=== PATIENT | male | born 1950 | race Caucasian/White ===

== ENCOUNTER 2018-03-19 05:48 | Emergency (ER) | payer OTHER, BC ==
[2018-03-19 06:24] VITALS: BMI 23.6
--- NOTE | 2018-03-19 08:02 | PDOC ---
History of Present Illness - General Chief Complaint: Urinary Problem Stated Complaint: URINARY PROBLEM Time Seen by Provider: 03/19/18 07:51 History Source: Patient Exam Limitations: No Limitations - History of Present Illness Travel History: No Initial Comments: 03/19/18 07:58 68-year-old male with history of BPH followed by urologist in [place] presents to the ED with complaints of difficulty urinating since 1 AM. Patient states has attempted to urinate but only drips yellow urine. Patient denies back pain, hematuria, fever or chills. Patient states is currently on no medication for his prostate and denies surgical correction for Infante placement in the past. Timing/Duration: reports: constant, getting worse Quality: reports: moderate, fullness Abdominal Pain Onset Location: reports: suprapubic Pain Radiation: reports: no radiation Activities at Onset: reports: none Aggravating Factors: improves with: None Alleviating Factors: improves with: None Past History - Travel Traveled outside of the country in the last 30 days: No - Past Medical History Allergies/Adverse Reactions: Allergies Allergy/AdvReac Type Severity Reaction Status Date / Time bacitracin Allergy Rash Verified 03/19/18 06:24 Home Medications: Ambulatory Orders NK [No Known Home Medication] 11/22/13 Cancer: Yes (BASIL CELL HEAD, NOSE, NECK) COPD: No - Immunization History Immunization Up to Date: Yes - Suicide/Smoking/Psychosocial Hx Smoking History: Never smoked Have you smoked in the past 12 months: No Information on smoking cessation initiated: No Hx Alcohol Use: No Drug/Substance Use Hx: No Substance Use Type: None Patient Lives Alone: No Lives with/in: spouse/SO Review of Systems - Review of Systems Able to Perform ROS?: Yes Constitutional: No: Symptoms Reported Respiratory: No: Symptoms reported ABD/GI: Yes: Other : Yes: Dysuria, Urgency. No: Testicular Pain Musculoskeletal: No: Symptoms Reported Integumentary: No: Symptoms Reported Neurological: No: Symptoms reported *Physical Exam - Vital Signs Last Vital Signs Temp Pulse Resp BP Pulse Ox 97.8 F 86 16 132/78 98 03/19/18 06:21 03/19/18 06:21 03/19/18 06:21 03/19/18 06:21 03/19/18 06:21 - Physical Exam General Appearance: Yes: Nourished, Appropriately Dressed. No: Apparent Distress Gastrointestinal/Abdominal: positive: Soft, Distended (over bladder), Tenderness (mid suprapubic) Male Genitalia: positive: normal genitalia. negative: discharge, testicular tenderness Extremity: positive: Normal Capillary Refill Integumentary: positive: Normal Color, Warm, Moist Neurologic: positive: Normal Mood/Affect, Motor Strength 5/5 (ambulatory) Moderate Sedation - Procedure Monitoring Vital Signs: Procedure Monitoring Vital Signs Temperature 97.8 F 03/19/18 06:21 Pulse Rate 86 03/19/18 06:21 Respiratory Rate 16 03/19/18 06:21 Blood Pressure 132/78 03/19/18 06:21 O2 Sat by Pulse Oximetry (%) 98 03/19/18 06:21 Medical Decision Making - Medical Decision Making 03/19/18 08:01 Chief complaint: Dysuria and urgency since 1 AM patient with history of BPH Exam: Suprapubic tenderness and bladder distention Plan: Infante catheter #16 placed without difficulty. Urinalysis and urine culture ordered. 03/19/18 09:02 Laboratory Tests 03/19/18 08:07 Urine Blood 2+ H Urine Nitrite Negative Urine Bilirubin Negative Ur Leukocyte Esterase Negative Urine WBC (Auto) 1 Urine RBC (Auto) 1 Patient will be switched to a leg bag and discharged home to follow-up with his urologist *DC/Admit/Observation/Transfer Diagnosis at time of Disposition: Urinary retention due to benign prostatic hyperplasia - Discharge Dispostion Disposition: HOME Condition at time of disposition: Improved - Referrals Referrals: Rusty Grove MD [Primary Care Provider] - - Patient Instructions Printed Discharge Instructions: How to Care for Your Infante Catheter -- Male, DI for Urinary Retention in Men Additional Instructions: Please empty urinary bag as needed. Please follow up with urologist for catheter removal - Post Discharge Activity
[2018-03-19 08:19] LABS: URINE APPEARANCE CLEAR; URINE BILIRUBIN NEGATIVE (<2.0 mg/dL); URINE COLOR STRAW; URINE GLUCOSE (UA) NEGATIVE (NEGATIVE); URINE KETONE NEGATIVE (NEGATIVE); URINE LEUK ESTERASE NEGATIVE (NEGATIVE); URINE NITRITE NEGATIVE (NEGATIVE); URINE PROTEIN NEGATIVE (NEGATIVE); URINE UROBILINOGEN NEGATIVE mg/dL (0.2-1.0)
[2018-03-19 08:49] LABS: URINE BACTERIA RARE /hpf (NONE SEEN)
[2018-03-19 09:40] VITALS: BP 128/80; PULSE 78; TEMP 98.5
== END 2018-03-19 09:30 | disposition home or self-care (01) ==
LOC: JER 05:48
PROC: 0T9B70Z Drainage of Bladder with Drainage Device, Via Natural or Artificial Opening (ICD-10-PCS; principal; 2018-03-19)
DX: N40.1 Benign prostatic hyperplasia with lower urinary tract symptoms (principal)
CPT/HCPCS: 81003; 81015; 87086; 99282-25

== ENCOUNTER 2018-03-26 22:20 | Inpatient (IN) | payer OTHER, BC ==
[2018-03-26 22:27] VITALS: BMI 24.7
--- NOTE | 2018-03-27 00:36 | PDOC ---
History of Present Illness - General Chief Complaint: Urinary Problem Stated Complaint: Urinary Problem Time Seen by Provider: 03/27/18 00:33 - History of Present Illness Initial Comments: The patient is a 68M w/ a PMH of BPH s/p recent mosqueda removal (03/24/2018) which was placed for retention. Since that time the patient reports that he has been experiencing frequency, difficulty initiating urination, and small volume voids. He reports that today he began to feel pain with initiation of urination and dysuria. He endorses feeling of suprapubic fullness w/o radiation. He states that he contacted his Urologist, Dr. Garcia, in [place] who told him to come to the ED tonight to have a mosqueda placed and he would see the pt tomorrow in the office. Of note, he reports that he was recently started on Flomax by said Urologist. Endorses recent chills, dysuria, mild suprapubic 'fullness' Denies fevers, LI, vision changes, chest pain, SOB, N/V/C/D, or changes in sensation PCP: Dr. Grove 03/27/18 00:44 Past History - Past Medical History Allergies/Adverse Reactions: Allergies Allergy/AdvReac Type Severity Reaction Status Date / Time bacitracin Allergy Rash Verified 03/26/18 22:27 Home Medications: Ambulatory Orders Tamsulosin HCl [Flomax] 0.4 mg PO DAILY 03/27/18 Cancer: Yes (BASIL CELL HEAD, NOSE, NECK) COPD: No - Immunization History Immunization Up to Date: Yes - Suicide/Smoking/Psychosocial Hx Smoking History: Never smoked Have you smoked in the past 12 months: No Hx Alcohol Use: Yes (OCC WINE) Drug/Substance Use Hx: No Substance Use Type: None Review of Systems - Review of Systems Able to Perform ROS?: Yes Comments:: GENERAL/CONSTITUTIONAL: No fever. No weakness HEAD, EYES, EARS, NOSE AND THROAT: No change in vision. No ear pain or discharge. No sore throat CARDIOVASCULAR: No chest pain or shortness of breath RESPIRATORY: Denies cough, hemoptysis GASTROINTESTINAL: No nausea, vomiting, diarrhea or constipation GENITOURINARY: per HPI MUSCULOSKELETAL: No joint or muscle swelling or pain. No neck or back pain SKIN: No rash NEUROLOGIC: No headache, vertigo, loss of consciousness, or change in strength/ sensation ENDOCRINE: No increased thirst. No abnormal weight change HEMATOLOGIC/LYMPHATIC: No anemia, easy bleeding, or history of blood clots ALLERGIC/IMMUNOLOGIC: No hives or skin allergy 03/27/18 00:35 Is the patient limited Mexican proficient: No *Physical Exam - Vital Signs Last Vital Signs Temp Pulse Resp BP Pulse Ox 99.2 F 120 H 18 133/60 96 03/26/18 22:24 03/26/18 22:24 03/26/18 22:24 03/26/18 22:24 03/26/18 22:24 - Physical Exam Comments: GENERAL: Awake, alert, and fully oriented, in no acute distress HEAD: No signs of trauma, normocephalic, atraumatic EYES: PERRLA, EOMI, sclera anicteric, conjunctiva clear ENT: Hearing grossly normal, nares patent, oropharynx clear without exudates. Moist mucosa LUNGS: No distress, speaks full sentences, clear to auscultation bilaterally HEART: Regular rate and rhythm, normal S1 and S2, no murmurs appreciated, peripheral pulses normal and equal bilaterally ABDOMEN: Soft, mild suprapubic TTP w/ bladder distention, normoactive bowel sounds. No guarding, no rebound EXTREMITIES : Normal inspection, Normal range of motion, no edema. No clubbing or cyanosis NEUROLOGICAL: Cranial nerves II through XII grossly intact. Normal speech, no focal sensorimotor deficits SKIN: Warm, Dry 03/27/18 00:35 Moderate Sedation - Procedure Monitoring Vital Signs: Procedure Monitoring Vital Signs Temperature 99.2 F 03/26/18 22:24 Pulse Rate 120 H 03/26/18 22:24 Respiratory Rate 18 03/26/18 22:24 Blood Pressure 133/60 03/26/18 22:24 O2 Sat by Pulse Oximetry (%) 96 03/26/18 22:24 ED Treatment Course - LABORATORY CBC & Chemistry Diagram: 03/27/18 01:00 03/27/18 01:00 Medical Decision Making - Medical Decision Making The pt is a 68M w/ a history of BPH s/p recent mosqueda removal on 03/24/2018 presenting for evaluation of urinary retention ED Course CMP, CBC, UA, Ucx Mosqueda placement 03/27/18 00:35 Leukocytosis to 15 Mosqueda placed Likely complicated UTI, will give Rocephin 1g IV Plan for admission IV abx and Urology evaluation 03/27/18 02:37 Patient febrile to 100.4 -Tylenol 975mg PO once Dispo: admit for complicated UTI and IV abx 03/27/18 05:52 *DC/Admit/Observation/Transfer Diagnosis at time of Disposition: Complicated UTI (urinary tract infection), Urinary retention due to benign prostatic hyperplasia - Discharge Dispostion Condition at time of disposition: Good Decision to Admit order: Yes - Referrals - Patient Instructions - Post Discharge Activity
--- NOTE | 2018-03-27 00:36 | PDOC ---
Attending Attestation - HPI HPI: This patient is a 68 year old male with PMHx of BPH , who was sent by his urologist. Patient complaints of dysuria as well as difficulty beginning urination. He called his urologist today who advised him to come to the ER for a mosqueda placement and he will see the patient in his office tomorrow. 03/27/18 01:02 - Physicial Exam PE: GENERAL: Awake, alert, and fully oriented, in no acute distress HEAD: No signs of trauma EYES: PERRLA, EOMI, sclera anicteric, conjunctiva clear ENT: Auricles normal inspection, hearing grossly normal, nares patent, oropharynx clear without exudates. Moist mucosa NECK: Normal ROM, supple, no lymphadenopathy, JVD, or masses LUNGS: Breath sounds equal, clear to auscultation bilaterally. No wheezes, and no crackles HEART: Regular rate and rhythm, normal S1 and S2, no murmurs, rubs or gallops ABDOMEN: Soft, nontender, normoactive bowel sounds. No guarding, no rebound. No masses. Bladder is palpable and distended below the umbilicus. EXTREMITIES: Normal range of motion, no edema. No clubbing or cyanosis. No cords, erythema, or tenderness NEUROLOGICAL: Cranial nerves II through XII grossly intact. Normal speech, normal gait SKIN: Warm, Dry, normal turgor, no rashes or lesions noted. <Mary Blanc - Last Filed: 03/27/18 01:14> - Resident Resident Name: Austin Tyler - ED Attending Attestation I have performed the following: I have examined & evaluated the patient, The case was reviewed & discussed with the resident, I agree w/resident's findings & plan, Exceptions are as noted - Medical Decision Making 03/27/18 00:36 I, Dr. Isabella Lou, DO, attest that this document has been prepared under my direction and personally reviewed by me in its entirety. I further attest, that it accurately reflects all work, treatment, procedures and medical decision -making performed by me. 03/27/18 01:22 a/p: 68yo male with hx of BPH with urinary freq, dysuria, hesitancy -recent catheter placed last saturday for urinary retention, removed Saturday by Dr. Radha -dysuria/freq, small urine outpt since -will check labs, mosqueda, ua/ucx -will orally hydrate -will monitor and reassess 03/27/18 02:37 wbc 15 has had chills this week dysuria most likely complicated UTI with recent mosqueda and then refoley will start iv abx 03/27/18 02:40 pt updated on labs will admit for iv abx microblog sent to [facility] covering Dr. Grove <Isabella Lou - Last Filed: 03/27/18 02:47> Heart Score/ECG Review - ECG Intrepretation Comment:: 03/27/18 02:46 sinus tach at 107, nl axis, t wave inversions iii, v3-v4, no acute st changes <Isabella Lou - Last Filed: 03/27/18 02:47> Attestations - Attestations 03/27/18 01:04 Documentation prepared by Mary Blanc, acting as medical lab technologist for Isabella Lou DO. <Mary Blanc - Last Filed: 03/27/18 01:14>
[2018-03-27 01:24] LABS: BASO % 0.4 % (0-2.0); HEMATOCRIT 40.4 % (35.4-49); HEMOGLOBIN 14.2 GM/dL (11.7-16.9); LYMPH % 7.6 % (8-40); MCH 31.3 pg (25.7-33.7); MCHC 35.1 g/dl (32.0-35.9); MEAN CELL VOLUME 89.3 fl (80-96); MEAN PLT VOLUME 8.7 fl (7.5-11.1); MONO % 11.5 % (3.8-10.2); NEUT % 80.5 % (42.8-82.8); PLATELET COUNT 184 K/MM3 (134-434); RBC 4.53 M/mm3 (4.00-5.60); RDW 13.7 % (11.9-15.9); WHITE BLOOD COUNT 15.3 K/mm3 (4.0-10.0)
[2018-03-27 01:55] LABS: ALBUMIN 3.3 g/dl (3.4-5.0); ALK PHOS 90 U/L (45-117); ANION GAP 5 MMOL/L (8-16); BILIRUBIN,TOTAL 1.2 mg/dL (0.2-1); BLOOD UREA NITROGEN 18 mg/dL (7-18); CALCIUM 8.5 mg/dL (8.5-10.1); CHLORIDE 98 mmol/L (98-107); CO2 30 mmol/L (21-32); GLUCOSE,RANDOM 101 mg/dL (74-106); POTASSIUM 3.9 mmol/L (3.5-5.1); SGOT/AST 30 U/L (15-37); SGPT/ALT 26 U/L (13-61); SODIUM 133 mmol/L (136-145); TOT PROT 6.5 g/dl (6.4-8.2)
[2018-03-27] MEDS ORDERED: CEFTRIAXONE 1,000 MG in DEXTROSE 5%-WATER - 50 ML IVPB ONE (02:36)
[2018-03-27] MEDS ORDERED: SODIUM CHLORIDE 0.9% 500 ML INFUS.BAG IV ONE (02:41)
[2018-03-27] MEDS ORDERED: CEFTRIAXONE 1 GM/50 ML BAG ONE (03:15)
[2018-03-27 03:28] LABS: URINE APPEARANCE CLEAR; URINE BILIRUBIN NEGATIVE (<2.0 mg/dL); URINE COLOR LTYELLOW; URINE GLUCOSE (UA) NEGATIVE (NEGATIVE); URINE KETONE 1+ (NEGATIVE); URINE LEUK ESTERASE TRACE (NEGATIVE); URINE NITRITE NEGATIVE (NEGATIVE); URINE PROTEIN 1+ (NEGATIVE); URINE UROBILINOGEN NEGATIVE mg/dL (0.2-1.0)
--- NOTE | 2018-03-27 03:46 | HP ---
CHIEF COMPLAINT: increased urinary urgency x 3 days PCP: Dr. Grove HISTORY OF PRESENT ILLNESS: 68 y/o M with PMH BPH who presents to the ED c/o increased urinary urgency over the past three days. 1 week ago, pt experienced decreased urinary frequency, thus he came to the ED to have a mosqueda placed and was sent home. In the interim , pt saw his urologist, Dr. Garcia who started him on flomax 0.4mg qd. This past Saturday, Dr. Garcia removed his mosqueda and initially pt was with adequate flow and frequency. However, over the last three days, he developed decreased flow, increased urgency, and painful start and stop of urination. During this time, pt also endorses subjective chills and constipation. Denies LI, chest pain or pressure, or N/V. ER course was notable for: (1) mosqueda (2) rocephin x 1 (3) IV NS Recent Travel: denies PAST MEDICAL HISTORY: BPH PAST SURGICAL HISTORY: circumcision (age 33), basal cell CA -moh's sx 1994, laser tx vein Social History: [place]- outdoor camping Smoking: denies Alcohol: denies Drugs: denies Family History: denies Allergies bacitracin Allergy (Verified 03/26/18 22:27) Rash HOME MEDICATIONS: Home Medications Medication Instructions Recorded Flomax 0.4mg qd 03/27/18 verified with patient REVIEW OF SYSTEMS CONSTITUTIONAL: +chills Absent: fever, chills, diaphoresis, generalized weakness, malaise, loss of appetite, weight change HEENT: Absent: rhinorrhea, nasal congestion, throat pain, throat swelling, difficulty swallowing, mouth swelling, ear pain, eye pain, visual changes CARDIOVASCULAR: Absent: chest pain, syncope, palpitations, irregular heart rate, lightheadedness , peripheral edema RESPIRATORY: Absent: cough, shortness of breath, dyspnea with exertion, orthopnea, wheezing, stridor, hemoptysis GASTROINTESTINAL: Absent: abdominal pain, abdominal distension, nausea, vomiting, diarrhea, constipation, melena, hematochezia GENITOURINARY: +dysuria, urgency Absent: dysuria, frequency, urgency, hesitancy, hematuria, flank pain, genital pain MUSCULOSKELETAL: Absent: myalgia, arthralgia, joint swelling, back pain, neck pain SKIN: Absent: rash, itching, pallor HEMATOLOGIC/IMMUNOLOGIC: Absent: easy bleeding, easy bruising, lymphadenopathy, frequent infections ENDOCRINE: Absent: unexplained weight gain, unexplained weight loss, heat intolerance, cold intolerance NEUROLOGIC: Absent: headache, focal weakness or paresthesias, dizziness, unsteady gait, seizure, mental status changes, bladder or bowel incontinence PSYCHIATRIC: Absent: anxiety, depression, suicidal or homicidal ideation, hallucinations. PHYSICAL EXAMINATION Vital Signs - 24 hr 03/26/18 22:24 Temperature 99.2 F Pulse Rate 120 H Respiratory 18 Rate Blood Pressure 133/60 O2 Sat by Pulse 96 Oximetry (%) GENERAL: resting comfortably in bed. in NAD HEAD: Normal with no signs of trauma. EYES: Pupils equal, round and reactive to light, extraocular movements intact, sclera anicteric, conjunctiva clear. EARS, NOSE, THROAT: Ears normal, nares patent, oropharynx clear without exudates. Moist mucous membranes. NECK: Normal range of motion, supple LUNGS: Breath sounds equal, clear to auscultation bilaterally. No wheezes, and no crackles. No accessory muscle use. HEART: +tachycardic rate and rhythm, normal S1 and S2 without murmur, rub or gallop. ABDOMEN: Soft, mild suprapubic tenderness, non distended, normoactive bowel sounds, no guarding, no rebound : +mosqueda, draining LOWER EXTREMITIES: 2+ pt pulses, warm, well-perfused. no edema NEUROLOGICAL: Cranial nerves II-XII intact. Normal speech. Laboratory Results - last 24 hr 03/27/18 03/27/18 03/27/18 01:00 01:00 01:55 WBC 15.3 H RBC 4.53 Hgb 14.2 Hct 40.4 MCV 89.3 MCH 31.3 MCHC 35.1 RDW 13.7 Plt Count 184 MPV 8.7 Absolute Neuts (auto) 12.3 H Neutrophils % 80.5 D Lymphocytes % 7.6 L D Monocytes % 11.5 H Eosinophils % 0.0 D Basophils % 0.4 Nucleated RBC % 0 Sodium 133 L Potassium 3.9 Chloride 98 Carbon Dioxide 30 Anion Gap 5 L BUN 18 Creatinine 1.0 Creat Clearance w eGFR > 60 Random Glucose 101 Calcium 8.5 Total Bilirubin 1.2 H AST 30 ALT 26 Alkaline Phosphatase 90 Total Protein 6.5 Albumin 3.3 L Urine Color Ltyellow Urine Appearance Clear Urine pH 6.0 Ur Specific Brooks 1.008 L Urine Protein 1+ H Urine Glucose (UA) Negative Urine Ketones 1+ H Urine Blood 3+ H Urine Nitrite Negative Urine Bilirubin Negative Urine Urobilinogen Negative Ur Leukocyte Esterase Trace ASSESSMENT/PLAN: 68 y/o M with PMH BPH who presents to the ED c/o increased urinary urgency over the past three days. #sepsis 2/2 UTI complicated by retention, mosqueda -though without significant findings on UA, with mild suprapubic tenderness, dysuria/urgency. WBC 15k will tx -s/p mosqueda placement -c/w rocephin 1g IVPB qd -c/w flomax 0.4mg PO qd -f/u ucx -uro f/u: Dr. Guzmán -void trials when able and no longer concern for retention, bladder scan as needed #BPH -c/w flomax #constipation -likely exacerbating urinary retention -will start senna, colace #f/e/n encourage PO intake continue to follow lytes regular diet #ppx DVT: hep 5k SQ TID #dispo admit med-surg Visit type - Emergency Visit Emergency Visit: Yes ED Registration Date: 03/27/18 Care time: The patient presented to the Emergency Department on the above date and was hospitalized for further evaluation of their emergent condition. - New Patient This patient is new to me today: Yes Date on this admission: 03/27/18 - Critical Care Critical Care patient: No
[2018-03-27 03:48] LABS: EPI CELLS FEW /HPF (FEW); URINE BACTERIA RARE /hpf (NONE SEEN)
--- NOTE | 2018-03-27 04:43 | PN ---
Teaching Attending Note Name of Resident: Lorena Vital ATTENDING PHYSICIAN STATEMENT I saw and evaluated the patient. I reviewed the resident's note and discussed the case with the resident. I agree with the resident's findings and plan as documented. SUBJECTIVE: This is a 68 year old man with a history of BPH, basal cell carcinoma who comes to the ED complaining of urinary urgency for 3 days. On Mar 19, he was seen in the ED for difficulty urinating. He was thought to have urinary retention secondary to BPH and a Infante was inserted. His urologist started him on Flomax and removed the Infante on Mar 24. Since then, he has developed decreased urinary flow, increased urinary urgency, and painful urination. He also reports chills and constipation. He denies fever, nausea, hematuria. OBJECTIVE: Vital Signs Period Temp Pulse Resp BP Sys/Dubois Pulse Ox Last 24 Hr 99.2 F 120 18 133/60 96 HEART: S1S2, tachycardic LUNGS: Clear ABDOMEN: Soft, non-distended, (+) suprapubic tenderness, normal BS EXTREMITIES: Trace edema Laboratory Tests 03/27/18 03/27/18 03/27/18 01:00 01:00 01:55 WBC 15.3 H RBC 4.53 Hgb 14.2 Hct 40.4 MCV 89.3 MCH 31.3 MCHC 35.1 RDW 13.7 Plt Count 184 MPV 8.7 Absolute Neuts (auto) 12.3 H Neutrophils % 80.5 D Lymphocytes % 7.6 L D Monocytes % 11.5 H Eosinophils % 0.0 D Basophils % 0.4 Nucleated RBC % 0 Sodium 133 L Potassium 3.9 Chloride 98 Carbon Dioxide 30 Anion Gap 5 L BUN 18 Creatinine 1.0 Creat Clearance w eGFR > 60 Random Glucose 101 Calcium 8.5 Total Bilirubin 1.2 H AST 30 ALT 26 Alkaline Phosphatase 90 Total Protein 6.5 Albumin 3.3 L Urine Color Ltyellow Urine Appearance Clear Urine pH 6.0 Ur Specific [place] 1.008 L Urine Protein 1+ H Urine Glucose (UA) Negative Urine Ketones 1+ H Urine Blood 3+ H Urine Nitrite Negative Urine Bilirubin Negative Urine Urobilinogen Negative Ur Leukocyte Esterase Trace Urine WBC (Auto) 9 Urine RBC (Auto) 8 Ur Epithelial Cells Few Urine Bacteria Rare Home Medications Medication Instructions Recorded Tamsulosin HCl [Flomax] 0.4 mg PO DAILY 03/27/18 ASSESSMENT AND PLAN: This is a 68 year old man with a history of BPH, basal cell carcinoma who presented to the ED complaining of urinary urgency for 3 days. 1. Urinary retention secondary to BPH with possible UTI and sepsis (leukocytosis , tachycardia) - Infante catheter reinserted in ED - Continue Flomax - Start ceftriaxone - Follow up urine culture - Urology consult 2. Constipation - Start Colace, Senna
[2018-03-27] MEDS ORDERED: ACETAMINOPHEN 325 MG TABLET (FP) PO ONE (05:43)
[2018-03-27] MEDS ORDERED: ACETAMINOPHEN 325 MG TABLET (FP) ONE (05:43)
[2018-03-27 05:53] LABS: BASO % 0.3 % (0-2.0); HEMATOCRIT 38.8 % (35.4-49); HEMOGLOBIN 13.2 GM/dL (11.7-16.9); LYMPH % 7.5 % (8-40); MCH 30.8 pg (25.7-33.7); MEAN CELL VOLUME 90.4 fl (80-96); MEAN PLT VOLUME 8.5 fl (7.5-11.1); MONO % 11.5 % (3.8-10.2); NEUT % 80.7 % (42.8-82.8); PLATELET COUNT 167 K/MM3 (134-434); RBC 4.29 M/mm3 (4.00-5.60); RDW 13.7 % (11.9-15.9)
[2018-03-27] MEDS: HEPARIN NA (PORCINE) 5,000 UNITS/ML 1ML VIAL SQ SCH ×3 (07:03→21:57)
[2018-03-27] MEDS ORDERED: HEPARIN NA (PORCINE) 5,000 UNITS/ML 1ML VIAL ONE (07:21)
[2018-03-27 07:41] LABS: ANION GAP 6 MMOL/L (8-16); BLOOD UREA NITROGEN 13 mg/dL (7-18); CALCIUM 8.2 mg/dL (8.5-10.1); CHLORIDE 102 mmol/L (98-107); CO2 29 mmol/L (21-32); CREATININE 0.9 mg/dL (0.55-1.3); GLUCOSE,RANDOM 103 mg/dL (74-106); PHOSPHOROUS 2.4 mg/dL (2.5-4.9); POTASSIUM 4.1 mmol/L (3.5-5.1); SODIUM 137 mmol/L (136-145)
[2018-03-27] MEDS: TAMSULOSIN HCL 0.4 MG CAP PO SCH (08:37)
[2018-03-27] MEDS ORDERED: CEFTRIAXONE 2 GM/100 ML BAG IVPB ONE (09:35)
[2018-03-27] MEDS: DOCUSATE SODIUM 100 MG CAPSULE (FP) PO SCH (09:38)
[2018-03-27] MEDS ORDERED: CEFTRIAXONE 2 GM-D5W BAG 2 GM/50 ML BAG IVPB SCH (10:00)
[2018-03-27] MEDS: SODIUM CHLORIDE 1,000 ML IV SCH ×2 (10:32→20:35)
[2018-03-27] MEDS ORDERED: CEFTRIAXONE 2 GM in DEXTROSE 5%-WATER 100 ML IVPB SCH (10:36)
--- NOTE | 2018-03-27 11:56 | EKG ---
Test Reason : Blood Pressure : / mmHG Vent. Rate : 107 BPM Atrial Rate : 107 BPM P-R Int : 134 ms QRS Dur : 082 ms QT Int : 326 ms P-R-T Axes : 030 -27 008 degrees QTc Int : 435 ms SINUS TACHYCARDIA VOLTAGE CRITERIA FOR LEFT VENTRICULAR HYPERTROPHY NONSPECIFIC ST AND T WAVE ABNORMALITY ABNORMAL ECG NO PREVIOUS ECGS AVAILABLE Confirmed by MUSA FRY, JOSSIE ([id number]) on 03/27/2018 11:55:52 AM Referred By: Confirmed By:JOSSIE VIGIL MD
--- NOTE | 2018-03-27 12:13 | PN ---
Progress Note, Physician Chief Complaint: Pt lying in stretcher in no acute distress. Reports feeling well now. Denies any chest pain, sob, n/v/d, abd pain - Current Medication List Current Medications: Active Medications Docusate Sodium (Colace -) 100 mg PO DAILY [facility] Last Admin: 03/27/18 09:38 Dose: 100 mg Heparin Sodium (Porcine) (Heparin -) 5,000 unit SQ TID [facility] Last Admin: 03/27/18 07:03 Dose: 5,000 unit Sodium Chloride (Normal Saline -) 1,000 mls @ 100 mls/hr IV ASDIR AIDE Ceftriaxone Sodium 2 gm/ (Dextrose) 100 mls @ 200 mls/hr IVPB DAILY [facility]; Protocol Senna (Senna -) 1 tab PO HS [facility] Tamsulosin HCl (Flomax -) 0.4 mg PO DAILY@0830 [facility] Last Admin: 03/27/18 08:37 Dose: 0.4 mg - Objective Vital Signs: Vital Signs Temperature 98.2 F 03/27/18 10:07 Pulse Rate 85 03/27/18 10:07 Respiratory Rate 16 03/27/18 10:07 Blood Pressure 116/76 03/27/18 10:07 O2 Sat by Pulse Oximetry (%) 99 03/27/18 10:07 Constitutional: Yes: Well Nourished, No Distress, Calm Cardiovascular: Yes: WNL, Regular Rate and Rhythm Respiratory: Yes: WNL, Regular, CTA Bilaterally. No: Accessory Muscle Use, Rhonchi, SOB, Tachypnea, Wheezes Gastrointestinal: Yes: WNL, Normal Bowel Sounds, Soft. No: Distention, Tenderness Genitourinary: Yes: Mosqueda Present, Hematuria (urine pink, +sedements/small clots ) Neurological: Yes: WNL, Alert, Oriented Psychiatric: Yes: WNL, Alert, Oriented Labs: CBC, BMP 03/27/18 05:30 03/27/18 05:30 Problem List - Problems (1) Sepsis Assessment/Plan: improving hypotensive/tachycardic, febrile on admission wbc 14k suspect 2/2 uti dysuria/retention s/p mosqueda removal by uro outpt await urine culture blood cultures ordered ceftriaxone IVF monitor Code(s): A41.9 - SEPSIS, UNSPECIFIED ORGANISM (2) UTI (urinary tract infection) Assessment/Plan: as above Code(s): N39.0 - URINARY TRACT INFECTION, SITE NOT SPECIFIED Qualifiers: Urinary tract infection type: acute cystitis Hematuria presence: with hematuria Qualified Code(s): N30.01 - Acute cystitis with hematuria (3) Leukocytosis Assessment/Plan: as above Code(s): D72.829 - ELEVATED WHITE BLOOD CELL COUNT, UNSPECIFIED (4) Urinary retention Assessment/Plan: resolved s/p mosqueda pending urology consult Code(s): R33.9 - RETENTION OF URINE, UNSPECIFIED (5) Hyperlipidemia Assessment/Plan: chronic outpt monitoring Code(s): E78.5 - HYPERLIPIDEMIA, UNSPECIFIED
[2018-03-27] MEDS: SENNOSIDES 8.6MG TABLET (FP) PO SCH (21:57)
[2018-03-27] MEDS ORDERED: CEFTRIAXONE 1 GM in DEXTROSE 5%-WATER - 50 ML IVPB SCH (22:00)
[2018-03-28] MEDS: HEPARIN NA (PORCINE) 5,000 UNITS/ML 1ML VIAL SQ SCH ×3 (06:02→21:43)
[2018-03-28 07:40] LABS: BASO % 0.2 % (0-2.0); EOS % 0.1 % (0-4.5); HEMATOCRIT 36.4 % (35.4-49); HEMOGLOBIN 12.4 GM/dL (11.7-16.9); LYMPH % 9.4 % (8-40); MCH 30.8 pg (25.7-33.7); MCHC 34.2 g/dl (32.0-35.9); MEAN CELL VOLUME 90.1 fl (80-96); MEAN PLT VOLUME 8.5 fl (7.5-11.1); MONO % 9.9 % (3.8-10.2); NEUT % 80.4 % (42.8-82.8); PLATELET COUNT 190 K/MM3 (134-434); RBC 4.03 M/mm3 (4.00-5.60); WHITE BLOOD COUNT 9.9 K/mm3 (4.0-10.0)
[2018-03-28 08:18] LABS: ANION GAP 7 MMOL/L (8-16); BLOOD UREA NITROGEN 11 mg/dL (7-18); CALCIUM 8.1 mg/dL (8.5-10.1); CHLORIDE 105 mmol/L (98-107); CO2 26 mmol/L (21-32); CREATININE 0.7 mg/dL (0.55-1.3); GLUCOSE,RANDOM 88 mg/dL (74-106); SODIUM 138 mmol/L (136-145)
[2018-03-28] MEDS: TAMSULOSIN HCL 0.4 MG CAP PO SCH (08:19)
[2018-03-28] MEDS: SODIUM CHLORIDE 1,000 ML IV SCH (08:20)
--- NOTE | 2018-03-28 08:23 | CON.GU ---
Consult Consult Specialty:: urology Reason for Consultation:: uti/urinary retention - History of Present Illness Chief Complaint: uti/urinary retention History of Present Illness: Patient is a 68 year old male with history of bph on flomax 0.4 mg daily who went into urinary retention twice. The patient developed a uti after the second episode. Patient is being followed by Dr. Garcia, a urologist in [place]. - History Source History Provided By: Patient Limitations to Obtaining History: No Limitations - Alcohol/Substance Use Hx Alcohol Use: Yes (OCC WINE) - Smoking History Smoking history: Never smoked Have you smoked in the past 12 months: No Home Medications - Allergies Allergies/Adverse Reactions: Allergies Allergy/AdvReac Type Severity Reaction Status Date / Time bacitracin Allergy Rash Verified 03/26/18 22:27 - Home Medications Home Medications: Ambulatory Orders Tamsulosin HCl [Flomax] 0.4 mg PO DAILY 03/27/18 Physical Exam- Vital Signs: Vital Signs Temperature 98.9 F 03/28/18 02:00 Pulse Rate 86 03/28/18 02:00 Respiratory Rate 20 03/28/18 02:00 Blood Pressure 123/71 03/28/18 02:00 O2 Sat by Pulse Oximetry (%) 96 03/27/18 22:00 Constitutional: Yes: Well Nourished, No Distress, Calm Eyes: Yes: WNL, Conjunctiva Clear, EOM Intact HENT: Yes: WNL, Atraumatic, Normocephalic Neck: Yes: WNL, Supple, Trachea Midline Cardiovascular: Yes: WNL Respiratory: Yes: WNL, Regular Gastrointestinal: Yes: WNL, Normal Bowel Sounds, Soft Renal/: Yes: WNL Kidneys: Yes: WNL Pelvis: Yes: Bladder Non Palpable Testicles: Yes: WNL Scrotum: Yes: WNL Penis: Yes: WNL (mosqueda draining clear urine) Prostate Exam: Yes: Swollen (3+ prostate/no fluctuance) Extremities: Yes: WNL Labs: CBC, BMP 03/28/18 06:30 Assessment/Plan imp uti bph urinary retention plan antibiotics as per urine culture results continue flomax d/c home with mosqueda to be followed up by patient's urologist
[2018-03-28] MEDS: CEFTRIAXONE 2 GM in DEXTROSE 5%-WATER 100 ML IVPB SCH (09:03)
[2018-03-28] MEDS: DOCUSATE SODIUM 100 MG CAPSULE (FP) PO SCH (09:04)
--- NOTE | 2018-03-28 12:23 | PN ---
Progress Note, Physician Chief Complaint: Pt sitting in chair in no acute distress. Reports feeling well. Denies any chest pain, sob, n/v/d, abd pain - Current Medication List Current Medications: Active Medications Docusate Sodium (Colace -) 100 mg PO DAILY [facility] Last Admin: 03/28/18 09:04 Dose: Not Given Heparin Sodium (Porcine) (Heparin -) 5,000 unit SQ TID [facility] Last Admin: 03/28/18 06:02 Dose: 5,000 unit Sodium Chloride (Normal Saline -) 1,000 mls @ 100 mls/hr IV ASDIR [facility] Last Admin: 03/28/18 08:20 Dose: 100 mls/hr Ceftriaxone Sodium 2 gm/ (Dextrose) 100 mls @ 200 mls/hr IVPB DAILY [facility]; Protocol Last Admin: 03/28/18 09:03 Dose: 200 mls/hr Senna (Senna -) 1 tab PO HS [facility] Last Admin: 03/27/18 21:57 Dose: 1 tab Tamsulosin HCl (Flomax -) 0.4 mg PO DAILY@0830 [facility] Last Admin: 03/28/18 08:19 Dose: 0.4 mg - Objective Vital Signs: Vital Signs Temperature 98.9 F 03/28/18 10:00 Pulse Rate 99 H 03/28/18 10:00 Respiratory Rate 18 03/28/18 10:00 Blood Pressure 131/74 03/28/18 10:00 O2 Sat by Pulse Oximetry (%) 95 03/28/18 09:00 Constitutional: Yes: Well Nourished, No Distress, Calm Cardiovascular: Yes: WNL, Regular Rate and Rhythm Respiratory: Yes: WNL, Regular, CTA Bilaterally. No: Accessory Muscle Use, SOB , Tachypnea, Wheezes Gastrointestinal: Yes: WNL, Normal Bowel Sounds, Soft. No: Distention, Tenderness Genitourinary: Yes: Mosqueda Present. No: Hematuria Extremities: Yes: WNL Edema: No Neurological: Yes: WNL, Alert, Oriented Psychiatric: Yes: WNL, Alert, Oriented Labs: CBC, BMP 03/28/18 06:30 03/28/18 06:30 Assessment/Plan (1) Sepsis Assessment/Plan: improving wbc normalized await urine/blood culture ceftriaxone day 3 Code(s): A41.9 - SEPSIS, UNSPECIFIED ORGANISM (2) UTI (urinary tract infection) Assessment/Plan: as above Code(s): N39.0 - URINARY TRACT INFECTION, SITE NOT SPECIFIED Qualifiers: Urinary tract infection type: acute cystitis Hematuria presence: with hematuria Qualified Code(s): N30.01 - Acute cystitis with hematuria (3) Leukocytosis Assessment/Plan: as above Code(s): D72.829 - ELEVATED WHITE BLOOD CELL COUNT, UNSPECIFIED (4) Urinary retention Assessment/Plan: mosqueda in place urology evaluated, recommends d/c home with mosqueda and outpt follow up Code(s): R33.9 - RETENTION OF URINE, UNSPECIFIED (5) Hyperlipidemia Assessment/Plan: chronic outpt monitoring Code(s): E78.5 - HYPERLIPIDEMIA, UNSPECIFIED (6) BPH (benign prostatic hyperplasia) Assessment/Plan: recurrent retention, s/p mosqueda on flomax 0.4 defer finesteride/increasing flomax to urology Code(s): N40.0 - BENIGN PROSTATIC HYPERPLASIA WITHOUT LOWER URINRY TRACT SYMP Qualifiers: Lower urinary tract symptom presence: symptoms present Lower urinary tract symptom detail: urinary retention Qualified Code(s): N40.1 - Benign prostatic hyperplasia with lower urinary tract symptoms; R33.8 - Other retention of urine Dispo: home tomorrow, pending UC sensitivity
[2018-03-28] MEDS ORDERED: ACETAMINOPHEN 325 MG TABLET (FP) PO PRN (13:10)
[2018-03-28] MEDS: SENNOSIDES 8.6MG TABLET (FP) PO SCH (21:44)
[2018-03-28] MEDS ORDERED: TAMSULOSIN HCL 0.4 MG CAP PO ONE (22:00)
[2018-03-29] MEDS: HEPARIN NA (PORCINE) 5,000 UNITS/ML 1ML VIAL SQ SCH ×2 (06:08→14:06)
[2018-03-29 07:41] LABS: BASO % 0.4 % (0-2.0); EOS % 0.5 % (0-4.5); HEMATOCRIT 34.6 % (35.4-49); HEMOGLOBIN 11.8 GM/dL (11.7-16.9); LYMPH % 12.1 % (8-40); MCH 30.7 pg (25.7-33.7); MCHC 34.1 g/dl (32.0-35.9); MEAN PLT VOLUME 8.2 fl (7.5-11.1); MONO % 10.2 % (3.8-10.2); NEUT % 76.8 % (42.8-82.8); PLATELET COUNT 208 K/MM3 (134-434); RBC 3.84 M/mm3 (4.00-5.60); RDW 13.5 % (11.9-15.9); WHITE BLOOD COUNT 6.7 K/mm3 (4.0-10.0)
[2018-03-29 08:04] LABS: ANION GAP 7 MMOL/L (8-16); BLOOD UREA NITROGEN 14 mg/dL (7-18); CALCIUM 8.4 mg/dL (8.5-10.1); CHLORIDE 105 mmol/L (98-107); CO2 28 mmol/L (21-32); CREATININE 0.7 mg/dL (0.55-1.3); GLUCOSE,RANDOM 93 mg/dL (74-106); SODIUM 140 mmol/L (136-145)
[2018-03-29] MEDS ORDERED: DEXTROSE 5%-WATER 100 ML IVPB ONE (09:05)
[2018-03-29] MEDS: CEFTRIAXONE 2 GM in DEXTROSE 5%-WATER 100 ML IVPB SCH (09:36)
[2018-03-29] MEDS: DOCUSATE SODIUM 100 MG CAPSULE (FP) PO SCH (09:36)
--- NOTE | 2018-03-29 11:02 | DS ---
Physical Exam: SUBJECTIVE: Patient seen and examined, no abdominal or back pain, fevers, chills or urinary symptoms. OBJECTIVE: Vital Signs Period Temp Pulse Resp BP Sys/Dubois Pulse Ox Last 24 Hr 97.5 F-99.2 F 76-86 20-20 114-130/66-72 94-95 PHYSICAL EXAM GENERAL: The patient is awake, alert, and fully oriented, in no acute distress. HEAD: Normal with no signs of trauma. EYES: PERRL, extraocular movements intact, sclera anicteric, conjunctiva clear. ENT: Ears normal, nares patent, oropharynx clear without exudates, moist mucous membranes. NECK: Trachea midline, full range of motion, supple. LUNGS: Breath sounds equal, clear to auscultation bilaterally, no wheezes, no crackles, no accessory muscle use. HEART: S1S2 regular rate ABDOMEN: Soft, nontender, nondistended, normoactive bowel sounds, no guarding, no rebound, no CVA or suprapubic tenderness, mosqueda in place, draining clear urine EXTREMITIES: 2+ pulses, warm, well-perfused, no edema. PSYCH: Normal mood, normal affect. SKIN: Warm, dry, normal turgor, no rashes or lesions noted. LABS Laboratory Results - last 24 hr 03/29/18 03/29/18 07:00 07:00 WBC 6.7 RBC 3.84 L Hgb 11.8 Hct 34.6 L MCV 90.0 MCH 30.7 MCHC 34.1 RDW 13.5 Plt Count 208 MPV 8.2 Absolute Neuts (auto) 5.2 Neutrophils % 76.8 Lymphocytes % 12.1 D Monocytes % 10.2 Eosinophils % 0.5 D Basophils % 0.4 Nucleated RBC % 0 Sodium 140 Potassium 4.0 Chloride 105 Carbon Dioxide 28 Anion Gap 7 L BUN 14 Creatinine 0.7 Creat Clearance w eGFR > 60 Random Glucose 93 Calcium 8.4 L Microbiology 03/27/18 01:55 Urine - Urine Clean Catch Urine Culture - Final Klebsiella Pneumoniae 03/27/18 14:49 Blood - Peripheral Venous Blood Culture - Preliminary NO GROWTH OBTAINED AFTER 24 HOURS, INCUBATION TO CONTINUE FOR 4 DAYS. 03/27/18 14:49 Blood - Peripheral Venous Blood Culture - Preliminary NO GROWTH OBTAINED AFTER 24 HOURS, INCUBATION TO CONTINUE FOR 4 DAYS. HOSPITAL COURSE: Date of Admission:03/27/18 Date of Discharge: 03/29/18 Minutes to complete discharge: 37 Discharge Summary Reason For Visit: COMPLICATED URINARY TRACT INFECTION, Current Active Problems BPH (benign prostatic hyperplasia) (Acute) Complicated UTI (urinary tract infection) (Acute) Hyperlipidemia (Acute) Leukocytosis (Acute) Sepsis (Acute) UTI (urinary tract infection) (Acute) Urinary retention (Acute) Urinary retention due to benign prostatic hyperplasia (Acute) Hospital Course: 68 yom with PMHx of BPH with ongoing concerns for urinary retention, s/p mosqueda outpatient, recently had his mosqueda removed by his urologist Dr. Garcia. patient came with urinary urgency, burning and decreased frequency. He was found with retention and UTI. He received mosqueda placement and was started on ceftriaxone. He was seen by urology and advised antibiotics and mosqueda on discharge with outpatient follow up with his urologist but no additional intervention. patient continued to stay asymptomatic and afebrile. His flomax was increased to 0.8 mg. His urine cultures grew pansensitive Klebsiella Pneumoniae and he is transitioned to cefuroxime for additional 1 week. Mosqueda teaching has been provided and discharge instructions, antibiotics, and outpatient follow up with urologist in 1 week have been discussed in detail with patient. Condition: Good - Instructions Diet, Activity, Other Instructions: You were admitted with urinary infection and retention. You had mosqueda placed and were started on antibiotics. You were seen by urology and recommended to continue mosqueda on discharge and follow up with your urologist in 1 week. You will be discharged on 1 week of antibiotics MEDICATIONS: Cefuroxime 500 mg twice daily for 1 week starting tomorrow 03/30/2018. Your flomax has been increased to 0.8 mg daily. Please take it at bedtime as it can cause dizziness. Notify your doctor if you feel dizzy on this higher dose of medication. ACTIVITY: Home mosqueda care till further instructed by your urologist. FOLLOW UP: Follow up with your urologist in 1 week and discuss further plan for mosqueda and prostate management. Follow up with your primary care doctor in 1 week. If you notice any new fevers, chills, belly or back pain, foul smell in urine, issues with mosqueda or any new concerns, please call 911 or come to ED. Referrals: Willie Garcia MD [Staff Physician] - Rusty Grove MD [Primary Care Provider] - Disposition: HOME - Home Medications Comprehensive Discharge Medication List: Ambulatory Orders Cefuroxime Axetil [Cefuroxime] 500 mg PO Q12H 7 Days #14 tablet 03/29/18 Tamsulosin HCl [Flomax -] 0.8 mg PO HS #60 cap.er.24h 03/29/18 This patient is new to me today: Yes Date on this admission: 03/29/18 Emergency Visit: Yes ED Registration Date: 03/27/18 Care time: The patient presented to the Emergency Department on the above date and was hospitalized for further evaluation of their emergent condition. Critical Care patient: No - Discharge Referral Referred to [facility] No
[2018-03-29 11:16] VITALS: BP 146/70; PULSE 99; TEMP 98.8
[2018-03-29] MEDS ORDERED: TAMSULOSIN HCL 0.4 MG CAP PO SCH (22:00)
== END 2018-03-29 17:53 | disposition home or self-care (01) | DRG 872 ==
LOC: JER 22:20 → JERBED 03-27 02:38 → J6S 03-27 19:53
PROVIDERS: ADMIT Internal Medicine; ATTEND Hospitalist
DX: A41.9 Sepsis, unspecified organism (principal); N39.0 Urinary tract infection, site not specified; N40.1 Benign prostatic hyperplasia with lower urinary tract symptoms; K59.00 Constipation, unspecified; R33.9 Retention of urine, unspecified; E78.5 Hyperlipidemia, unspecified; D72.829 Elevated white blood cell count, unspecified
CPT/HCPCS: 36415; 71045-TC-FY; 80048; 80053; 81003; 81015; 83735; 84100; 85025; 87040; 87086; 87186; 93005; 93010; 99284-25; J1644; J7030

== ENCOUNTER 2018-06-13 21:54 | Emergency (ER) | payer OTHER, BC ==
[2018-06-13 22:09] VITALS: BP 161/78; PULSE 91; TEMP 97.5; BMI 24.3
--- NOTE | 2018-06-13 22:22 | PDOC ---
History of Present Illness - General Chief Complaint: Urinary Problem Stated Complaint: NEEDS URINE CATHETER Time Seen by Provider: 06/13/18 22:12 History Source: Patient Exam Limitations: No Limitations - History of Present Illness Initial Comments: 06/13/18 22:13 68YOM with h/o BPH (had prostate biopsy this AM), complicated UTIs, and HLD who p/w inability to urinate for the past 3.5 hours. He notes initially dribbling and now complete inability to pass urine, and has had increasing lower abdominal discomfort and distention for the past 3.5 hours. Also notes a small amount of blood in the urine. Otherwise he denies f/c/n/v/d/c, strange smells to urine, skin changes, discharge, back pain, etc. Has not taken any medications for the symptoms. Past History - Past Medical History Allergies/Adverse Reactions: Allergies Allergy/AdvReac Type Severity Reaction Status Date / Time bacitracin Allergy Rash Verified 06/13/18 22:51 Home Medications: Ambulatory Orders Cefuroxime Axetil [Cefuroxime] 500 mg PO Q12H 7 Days #14 tablet 03/29/18 Tamsulosin HCl [Flomax -] 0.8 mg PO HS #60 cap.er.24h 03/29/18 Cancer: Yes (BASIL CELL HEAD, NOSE, NECK) COPD: No Disorders: Yes (BPH) - Immunization History Immunization Up to Date: Yes - Suicide/Smoking/Psychosocial Hx Smoking History: Never smoked Have you smoked in the past 12 months: No Hx Alcohol Use: No Drug/Substance Use Hx: No Substance Use Type: None Hx Substance Use Treatment: No Review of Systems - Review of Systems Able to Perform ROS?: Yes Comments:: 06/13/18 22:22 GEN: no fever, chills, malaise, generalized weakness, or weight change HEENT: no ear pain, sore throat, vision change, or eye pain CV: no chest pain, palpitations, lightheadedness, syncope, or edema RESP: no cough, wheezing, or SOB GI: no abdominal pain, nausea, vomiting, diarrhea, constipation, or white/black/ bloody stool : retention, bleeding, no dysuria, hematuria, incontinence, or discharge MSK: no neck/back pain, muscle weakness/pain, or joint swelling/pain NEURO: no headache, seizure, vertigo, numbness, tingling, or focal weakness PSYCH: no substance use, no behavior change SKIN: no jaundice, no rash ROS otherwise negative except as noted in HPI *Physical Exam - Vital Signs Last Vital Signs Temp Pulse Resp BP Pulse Ox 97.5 F L 91 H 20 161/78 97 06/13/18 22:06 06/13/18 22:06 06/13/18 22:06 06/13/18 22:06 06/13/18 22:06 - Physical Exam Comments: GENERAL: well-appearing, A/Ox4, answers questions appropriately, very pleasant, accompanied by , a bit uncomfortable appearing and standing for the duration of interview stating this helps the discomfort HEENT: PERRLA, EOMI, moist mucous membranes NECK/BACK: no midline ttp, no spinal stepoff or deformity, no hematoma, full ROM , neck supple CARDIOVASCULAR: regular rate/rhythm, normal S1S2, no MGR, strong peripheral pulses, capillary refill <2 seconds, extremities wwp, no edema LUNGS/RESPIRATORY: no respiratory distress, CTAB GI/ABDOMEN: symmetric [id number]-[id number]-veil, normoactive BS, soft, no ttp, no midline pulsatile masses : no CVA tenderness, no penile lesions or swelling or discharge, no testicular pain or swelling EXTREMITIES: no muscle atrophy, no acute deformity SKIN: warm and dry, no pallor, no jaundice, no rash, no bruising, no skin breakdown, no cuts, no lesions NEUROLOGICAL: GCS 15, CN II-XII grossly intact, 5/5 strength proximally and distally, no facial droop Medical Decision Making - Medical Decision Making 06/13/18 22:30 68YOM with BPH p/w urinary retention x3.5 hours after having prostate biopsy this morning. Initial Vital Signs Temp Pulse Resp BP Pulse Ox 97.5 F L 91 H 20 161/78 97 06/13/18 22:06 06/13/18 22:06 06/13/18 22:06 06/13/18 22:06 06/13/18 22:06 Exam: As noted in Physical Exam section. DDX IBNLT: most likely prostate inflammation from procedure coupled with BPH, less likely space occupying lesion (e.g. large fibroid, , malignancy), interstitial cystitis, neurogenic bladder, ALLOY WEIGHER or PNS dysfunction, etc W/U ordered: UA UCx TX ordered: Infante Laboratory Tests 06/13/18 22:29 Urine Color Yellow Urine Appearance Clear Urine pH 7.0 Ur Specific [place] 1.010 Urine Protein Negative Urine Glucose (UA) Negative Urine Ketones Negative Urine Blood 1+ H Urine Nitrite Negative Urine Bilirubin Negative Urine Urobilinogen 0.2 Ur Leukocyte Esterase Negative Urine WBC (Auto) 1 Urine RBC (Auto) 25 Urine Casts (Auto) 0 U Epithel Cells (Auto) 0.4 Urine Bacteria (Auto) 0.3 Reassessment: Patient states much more comfortable, repeat exam benign. DISCHARGE Infante placed and functional and leg bag given. Workup is not concerning for emergency-level pathology at this time. The Pt is appropriate for discharge with close outpatient follow up. I have spoken with the patient's urology office and they will see him Saturday morning at 9am. The Pt is comfortable with this plan and will follow up with urology. Specific return precautions are discussed and she will come back to the ER if necessary. *DC/Admit/Observation/Transfer Diagnosis at time of Disposition: Urinary retention BPH (benign prostatic hyperplasia) Qualifiers: Lower urinary tract symptom presence: symptoms present Lower urinary tract symptom detail: urinary obstruction Qualified Code(s): N40.1 - Benign prostatic hyperplasia with lower urinary tract symptoms - Discharge Dispostion Disposition: HOME Condition at time of disposition: Stable Decision to Admit order: No - Referrals Referrals: Rusty Grove MD [Primary Care Provider] - - Patient Instructions Additional Instructions: You were seen in the ER for urinary retention after a prostate biopsy. We did an exam, and a urine analysis, and we placed a Infante catheter for you to go home with this weekend. There will be a small amount of bleeding for the next couple of days, which is normal. We spoke with Dr. Persaud from your urology office, and they can see you in the office on Saturday at 9 am. After our assessment, we do not believe you are having a medical emergency at this time, and we believe you are safe to go home. Please follow up with your urologist. If you have any new or worsening symptoms, especially if the Infante stops draining and becomes clogged, if you have UTI symptoms or a fever, please come back to the ER at any time (24 hours a day). If you are having severe or life threatening symptoms, or symptoms that make it unsafe to drive or have someone drive you, please call 911. - Post Discharge Activity
--- NOTE | 2018-06-13 22:36 | PDOC ---
Attending Attestation - HPI HPI: 06/13/18 23:02 The patient is a 68 year old male with a significant past medical history of BPH (had prostate biopsy this AM), complicated UTIs, and HLD who presents to the emergency department with the inability to urinate after having prostate biopsy this morning. The patient states he was initially able to urinate, however, he is now unable to pass urine. The patient states he endorses lower abdominal discomfort, distention, and a small amount of blood in the urine secondary to his symptoms. The patient denies strange smells to urine, skin changes, discharge, or back pain. The patient denies fever, chills, nausea, vomit, diarrhea or constipation. The patient denies dysuria, frequency, or urgency. Allergies: Bacitracin Past surgical history: none reported Social history: None reported PCP: Rusty Platt - Physicial Exam PE: 06/13/18 23:03 GENERAL: Awake, alert, and fully oriented, in no acute distress. No fever HEAD: No signs of trauma EYES: PERRLA, EOMI, sclera anicteric, conjunctiva clear ENT: Auricles normal inspection, hearing grossly normal, nares patent, oropharynx clear without exudates. Moist mucosa NECK: Normal ROM, supple, no lymphadenopathy, JVD, or masses LUNGS: Breath sounds equal, clear to auscultation bilaterally. No wheezes, and no crackles HEART: Regular rate and rhythm, normal S1 and S2, no murmurs, rubs or gallops ABDOMEN: Soft, nontender, normoactive bowel sounds. No guarding, no rebound. No masses PROSTATE: (+) prostate biopsy with drainage clear/pinkish in color. EXTREMITIES: Normal range of motion, no edema. No clubbing or cyanosis. No cords, erythema, or tenderness. No leg swelling. NEUROLOGICAL: Cranial nerves II through XII grossly intact. Normal speech, normal gait SKIN: Warm, Dry, normal turgor, no rashes or lesions noted. <Ivanna Gottlieb - Last Filed: 06/13/18 23:02> - Resident Resident Name: Erin Guillen - ED Attending Attestation I have performed the following: I have examined & evaluated the patient, The case was reviewed & discussed with the resident, I agree w/resident's findings & plan - Medical Decision Making 06/14/18 20:32 Pt had a mosqueda cath placed with leg bag. Urine is pinkinsh. Pt is on 2 abx. UA as expected after a prostate biopsy - pt good for discharge. Pt will follow with his urologist on Saturday. <Maria Isabel Sharma - Last Filed: 06/14/18 20:34> Attestations - Attestations 06/13/18 23:04 Documentation prepared by Ivanna Gottlieb, acting as medical center representative for Maria Isabel Sharma MD <Ivanna Gottlieb - Last Filed: 06/13/18 23:02>
[2018-06-13 22:58] LABS: EPI CELLS 0.4 /HPF (0-5); URINE APPEARANCE CLEAR; URINE BACTERIA 0.3 /hpf (NEGATIVE); URINE BILIRUBIN NEGATIVE (NEGATIVE); URINE CASTS 0 /hpf (0-8); URINE COLOR YELLOW; URINE GLUCOSE (UA) NEGATIVE (NEGATIVE); URINE KETONE NEGATIVE (NEGATIVE); URINE LEUK ESTERASE NEGATIVE (NEGATIVE); URINE NITRITE NEGATIVE (NEGATIVE); URINE PROTEIN NEGATIVE (NEGATIVE); URINE RBC 25 /hpf (0-4); URINE UROBILINOGEN 0.2 mg/dL (0.2-1.0); URINE WBC 1 /hpf (0-5)
== END 2018-06-13 23:16 | disposition home or self-care (01) ==
LOC: JER 21:54
PROC: 0T9B70Z Drainage of Bladder with Drainage Device, Via Natural or Artificial Opening (ICD-10-PCS; principal; 2018-06-13)
DX: N40.1 Benign prostatic hyperplasia with lower urinary tract symptoms (principal); R33.8 Other retention of urine; Z98.890 Other specified postprocedural states; Z85.828 Personal history of other malignant neoplasm of skin
CPT/HCPCS: 81003; 87086; 99282-25